=== PATIENT | male | born 1960 | race Caucasian/White ===

== ENCOUNTER 2019-01-24 16:27 | Emergency (ER) | payer OTHER, MEDICAID, SELFPAY ==
[2019-01-24 16:50] VITALS: BP 158/101; PULSE 90; RESP 18; TEMP 37.2; O2SAT 99; BMI 31.9
--- NOTE | 2019-01-24 18:27 | ED_ITS ---
HPI - Dental/Oral General Chief complaint: Dental/Oral Stated complaint: upper right back tooth broke off x1 day Time Seen by Provider: 01/24/19 18:27 Source: patient Mode of arrival: ambulatory Limitations: no limitations History of Present Illness HPI Narrative: 50-year-old who cracked her right upper tooth yesterday while eating here for evaluation of continued pain. Has been unable to follow up with a dentist in this time. Stated that he is not here for pain medication only antibiotics. He states he has a friend who does is a dentist and get him in for evaluation. Related Data Previous Rx's Medication Instructions Recorded naproxen [Naprosyn] 500 mg PO SEE INSTRUCTIONS #60 tab 07/03/16 ibuprofen 800 mg PO TIDP PRN #20 tab 10/29/16 oxycodone-acetaminophen [Percocet] 1 tab PO Q4HP PRN #10 tab 10/29/16 penicillin V potassium 500 mg PO QID 7 Days #28 tab 01/24/19 Allergies Allergy/AdvReac Type Severity Reaction Status Date / Time acetaminophen [From Vicodin] Allergy Vomiting Verified 01/24/19 16:55 hydrocodone [From Vicodin] Allergy Vomiting Verified 01/24/19 16:55 Review of Systems Constitutional Denies fever(s) and Denies headache(s) ENT Ears, Nose, Mouth, and Throat: Reports dental pain and Denies headache(s) Cardiovascular Denies dyspnea Respiratory Denies cough and Denies dyspnea Gastrointestinal Gastrointestinal: Denies abdominal pain Integumentary/Breasts Denies rash Neurologic Denies headache(s) Hematologic/Lymphatic Denies easy bleeding and Denies easy bruising [facility] Medical History Patient denies medical problems (Acute) Social History Smoking Status: Never smoker Social History Smoking Status: Never smoker Exam Initial Vital Signs Initial Vital Signs: Vital Signs Temperature 99.0 F 01/24/19 16:50 Pulse Rate 90 01/24/19 16:50 Respiratory Rate 18 01/24/19 16:50 Blood Pressure 158/101 H 01/24/19 16:50 Pulse Oximetry 99 01/24/19 16:50 Const General: cooperative, comfortable, well developed and well groomed Orientation: alert and awake HENMT Head: normal to inspection and normocephalic Nose: TMJ nontender Face and sinus: normal facial exam Mouth: oral mucosae normal Teeth and gingiva: poor dentition and other (Multiple missing teeth, fractured right upper tooth) Throat: posterior oropharynx normal Neck Lymphatic: No lymphadenopathy Resp Effort & Inspection: normal respiratory effort Cardio Rate: regular rate Skin Lesions: no lesions Rashes: no rashes Neuro General: alert and awake Cognition: normal cognition Speech: speech normal Extrem General: normal to inspection and capillary refill normal Course Vital Signs - 8 hr 01/24/19 18:28 Pulse Rate 92 H Respiratory Rate 18 Blood Pressure [Left Arm] 155/107 H Pulse Oximetry 99 MDM - Dental/Oral MDM Narrative Medical decision making narrative: Patient has no signs of a definitive abscess. He does have a fractured right upper tooth. A temporary filling was placed here in the emergency department. Patient is informed that this was temporary and could potentially fall out at any point. Will send home with a prescription for antibiotics. He was informed he needed to follow up with his dentist. He is given return precautions. He expressed understanding and agreement with plan. Discharge Plan Departure Patient Disposition: Home Clinical Impression: Fracture of tooth Qualifiers: Encounter type: initial encounter Fracture type: closed Qualified Code(s): S02.5XXA - Fracture of tooth (traumatic), initial encounter for closed fracture Discharge Date/Time: 01/24/19 19:06 Interventions: ED Discharge Assessment Last Done: 01/24/19 19:05 Instructions: Tooth Fracture Activity Restrictions/Additional Instructions: take the antibiotics as directed. Contact your dentist for a follow up. return to the ER for any new or worsening symptoms. Your medications were sent to the [facility] here in [place]. Prescriptions: New penicillin V potassium 500 mg tablet 500 mg PO QID 7 Days Qty: 28 RF: 0 No Action naproxen [Naprosyn] 500 MG tablet 500 mg PO SEE INSTRUCTIONS Qty: 60 RF: 1 ibuprofen 800 MG tablet 800 mg PO TIDP PRNQty: 20 RF: 0 oxycodone-acetaminophen [Percocet] 5 MG/325 MG tablet 1 tab PO Q4HP PRNQty: 10 RF: 0 Referrals: James Law MD [Primary Care Provider] -
[2019-01-24 18:28] VITALS: BP 155/107; PULSE 92; RESP 18; O2SAT 99
--- NOTE | 2019-01-25 07:16 | PC.NURSE ---
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
--- NOTE | 2019-01-25 07:17 | PC.NURSE ---
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 Penicillin-VK 500 mg PO QID x [address] Mars.
== END 2019-01-24 19:06 | disposition home or self-care (01) ==
PROVIDERS: Emergency Provider Emergency Medicine; PCP Family Medicine
DX: S02.5XXA Fracture of tooth (traumatic), initial encounter for closed fracture (principal)
CPT/HCPCS: 99282; 99283